=== PATIENT | female | born 1980 | race Caucasian/White ===

== ENCOUNTER 2016-05-15 09:20 | Day surgery (SDC) | payer OTHER, BC ==
[~2016-05-15] VITALS: Ht 167.6 cm; Wt 98.0 kg
[2016-05-15] VITALS (9 sets, daily range): BP systolic 121–140; BP diastolic 69–79; PULSE 16–99; TEMP 97.9
[~2016-05-15 09:20] MED LIST: BENTYL 10MG10 MG/CAP PO; BUPROPION300 MG PO; Benefiber PO; CEFACLOR250 MG PO; CEFTIN500 MG PO; CIPRO 500MG TA500 MG PO; DIAMOX SEQUELS500 M1 PO; FLAGYL500 MG PO; FLOMAX 0.40.4 MG/CAP PO; GLUCOSAMINE S1000 MG PO; LISINOPRIL5 MG PO; MOTRIN 800800 MG/TAB PO; MULTIPLE VITAMI1 CAP PO; NORCO 325 MG-51 TAB PO; PERCOCET 325 MG1 TA2 PO; PRINIVIL10 MG PO; PYRIDIUM 100MG100 MG PO; SENOKOT S 50 MG1 TAB PO; SYNTHROID0.05 MG PO; SYNTHROID0.05 MG/TA PO; VANTIN 200200 MG/TAB; VITAMIN D1000 IU PO; WELLBUTRIN XL300 M1 PO; ZOFRAN 4MG T4 MG/TAB PO; ZOFRAN ODT4 MG PO
[2016-05-15] MEDS ORDERED: OMNICEF 300MG300 MG (11:02)
[2016-05-16 01:36] VITALS: BP 111/62; PULSE 87; TEMP 98.4
[2016-05-16 06:37] VITALS: BP 116/64; PULSE 77; TEMP 97.5
[2016-05-16 09:03] VITALS: BP 129/64; PULSE 90; TEMP 98.2
== END 2016-05-16 11:45 | disposition home or self-care (01) ==
LOC: COL.ER 09:20 → SURG 11:50 → SDCO 11:50
DX: S02.2XXB Fracture of nasal bones, initial encounter for open fracture (principal); S01.21XA Laceration without foreign body of nose, initial encounter; S01.411A Laceration without foreign body of right cheek and temporomandibular area, initial encounter; S62.618A Displaced fracture of proximal phalanx of other finger, initial encounter for closed fracture; W18.09XA Striking against other object with subsequent fall, initial encounter
CPT/HCPCS: OP; J0690; J1100; J1170; J2405; J2550; J2704; J2765; J3010; J7030; J7120

== ENCOUNTER 2019-02-16 14:04 | Emergency (ER) | payer BC ==
[~2019-02-16] VITALS: Ht 167.6 cm; Wt 109.1 kg
[~2019-02-16 14:04] MED LIST changes: +OMNICEF 300MG300 MG
[2019-02-16 15:23] LABS: BASO # 0.1 (0.0-0.2); BASO % 0.6 % (0.0-2.0); EOS # 0.1 (0.0-0.7); GRAN # 6.4 (1.4-6.5); GRAN % 72.1 % (42.2-75.2); HEMATOCRIT 42.3 % (37.0-47.0); HEMOGLOBIN 13.5 g/dl (12.5-16.0); LYMPH # 1.8 (1.2-3.4); LYMPH % 20.5 % (20.0-51.0); MEAN CELL VOLUME 83 fl (80.0-100.0); MEAN CORPUSCULAR HEMOGLOBIN 26 pg (27.0-31.0); MEAN CORPUSCULAR HGB CONC 32 g/dl (33.0-37.0); MEAN PLATELET VOLUME 9.8 fl (7.4-10.4); MONO # 0.5 (0.1-0.6); MONO % 5.6 % (1.7-9.3); PLATELET COUNT 326 K/mm3 (130-400); RED BLOOD COUNT 5.12 M/mm3 (4.10-5.30); REDCELL DISTRIBUTION WIDTH-CV 13.7 % (11.5-14.5)
[2019-02-16 15:33] LABS: ALANINE AMINOTRANSFERASE 22 U/L (9-52); ALBUMIN 4.4 gm/dL (3.5-5.0); ALKALINE PHOSPHATASE 73 U/L (50-136); ANION GAP 8 mmol/L (7-16); AST,SGOT 39 U/L (15-37); BILIRUBIN,TOTAL 0.4 mg/dL (0.0-1.0); BLOOD UREA NITROGEN 15 mg/dL (7-17); CALCIUM 9.1 mg/dL (8.4-10.2); CARBON DIOXIDE 27 mmol/L (22-30); CHLORIDE 105 mmol/L (98-107); GLUCOSE 87 mg/dL (74-106); POTASSIUM 4.2 mmol/L (3.4-5.0); SODIUM 141 mmol/L (137-145); TOTAL PROTEIN 7.5 gm/dL (6.4-8.2)
[2019-02-16 15:44] LABS: C-REACTIVE PROTEIN < 0.5 mg/dL (0.0-0.9)
[2019-02-16 15:45] LABS: ERYTHROCYTE SEDIMENTATION RATE 11 mm/hr (0-20)
[2019-02-16 17:26] VITALS: BP 143/87; PULSE 73; TEMP 97.5
== END 2019-02-16 17:31 | disposition home or self-care (01) ==
LOC: COL.ER 14:04
PROVIDERS: Emergency Medicine
DX: H46.9 Unspecified optic neuritis (principal); I10 Essential (primary) hypertension; Z88.1 Allergy status to other antibiotic agents; Z87.442 Personal history of urinary calculi
CPT/HCPCS: J1200; J1885; J2765

== ENCOUNTER → 2019-02-18 | Outpatient (CLI) | payer BC | LOC: COL.RAD 08:02 | DX: G93.89 Other specified disorders of brain (principal); M89.8X8 Other specified disorders of bone, other site | CPT/HCPCS: A9585 ==

== ENCOUNTER 2019-02-24 08:00 | Outpatient (RCR) | payer BC ==
[2019-02-22 09:10] VITALS: BP 111/63; PULSE 64; TEMP 98.4
[2019-02-23 09:14] VITALS: BP 120/70; PULSE 79; TEMP 98.1
[~2019-02-24] VITALS: Ht 167.6 cm; Wt 111.6 kg
[~2019-02-24 08:00] MED LIST changes: +CRANBERRY250 MG PO; -PRINIVIL10 MG PO; +PRINIVIL20 MG PO; +PROBIOTIC FORMU1 CAP PO; -SYNTHROID0.05 MG/TA PO; +SYNTHROID0.075 MG/T PO
[2019-02-24 08:51] VITALS: BP 125/70; PULSE 70; TEMP 98.2
== END 2019-02-24 09:32 | disposition home or self-care (01) ==
LOC: EUO 08:00
DX: H46.9 Unspecified optic neuritis (principal); H53 Visual disturbances
CPT/HCPCS: J2930; J7050

== ENCOUNTER → 2019-11-18 | Outpatient (CLI) | payer BC | LOC: MC.RAD 14:50 | DX: Z12.31 Encounter for screening mammogram for malignant neoplasm of breast (principal); Z01.419 Encounter for gynecological examination (general) (routine) without abnormal findings; N63.10 Unspecified lump in the right breast, unspecified quadrant; N63.20 Unspecified lump in the left breast, unspecified quadrant ==

== ENCOUNTER → 2019-11-27 | Outpatient (CLI) | payer BC | LOC: MC.RAD 09:12 | DX: Z01.419 Encounter for gynecological examination (general) (routine) without abnormal findings (principal); N64.9 Disorder of breast, unspecified ==

== ENCOUNTER → 2020-03-03 | Outpatient (CLI) | payer BC | LOC: COL.RAD 11:28 | DX: N28.1 Cyst of kidney, acquired (principal); N32.89 Other specified disorders of bladder ==

== ENCOUNTER → 2020-05-31 | Outpatient (CLI) | payer BC | LOC: MC.RAD 12:59 | DX: N63.10 Unspecified lump in the right breast, unspecified quadrant (principal); N63.20 Unspecified lump in the left breast, unspecified quadrant ==

== ENCOUNTER → 2020-12-13 | Outpatient (CLI) | payer BC | LOC: MC.RAD 08:54 | DX: N63.20 Unspecified lump in the left breast, unspecified quadrant (principal) ==

== ENCOUNTER → 2021-12-14 | Outpatient (CLI) | payer BC | LOC: MC.RAD 14:15 | DX: Z12.31 Encounter for screening mammogram for malignant neoplasm of breast (principal) ==

== ENCOUNTER → 2022-05-17 | Outpatient (CLI) | payer BC | LOC: COL.RAD 12:34 | DX: N28.1 Cyst of kidney, acquired (principal); N30.20 Other chronic cystitis without hematuria; Z87.442 Personal history of urinary calculi ==

== ENCOUNTER 2022-08-31 00:27 | Emergency (ER) | payer BC ==
[~2022-08-31] VITALS: Ht 167.6 cm; Wt 115.9 kg
[~2022-08-31 00:27] MED LIST changes: -PROBIOTIC FORMU1 CAP PO; +PROBIOTIC-MAJOR PO
[2022-08-31 00:29] VITALS: TEMP 101.6
[2022-08-31 01:05] LABS: HEMATOCRIT 41.5 % (37.0-47.0); HEMOGLOBIN 13.5 g/dl (12.5-16.0); MEAN CELL VOLUME 84 fl (80.0-100.0); MEAN CORPUSCULAR HEMOGLOBIN 27 pg (27-31); MEAN CORPUSCULAR HGB CONC 33 g/dl (33.0-37.0); MEAN PLATELET VOLUME 9.4 fl (7.4-10.4); PLATELET COUNT 299 K/mm3 (130-400); RED BLOOD COUNT 4.96 M/mm3 (4.10-5.30); REDCELL DISTRIBUTION WIDTH-CV 13.6 % (11.5-14.5)
[2022-08-31 01:11] LABS: ALBUMIN 3.9 gm/dL (3.5-5.0); BILIRUBIN,TOTAL 0.3 mg/dL (0.2-1.2); CALCIUM 9.1 mg/dL (8.4-10.2); CREATININE, serum 1.06 mg/dL (0.57-1.11); POTASSIUM 4.2 mmol/L (3.5-4.5); TOTAL PROTEIN 7.2 gm/dL (6.2-8.1)
[2022-08-31 01:18] LABS: BAND 12 % (0-10); LYMPHOCYTE 2 % (20.0-51.0); NEUTROPHILS 84 % (42.0-75.2); PLATELET ESTIMATE NORMAL (NORMAL)
[2022-08-31 02:37] LABS: COLLECTION METHOD CLEAN CATCH
[2022-08-31 02:48] LABS: SQUAMOUS EPITHELIAL 0-2 /hpf (0-10); URINE BACTERIA Rare /hpf (NONE SEEN)
[2022-08-31 02:49] LABS: PH 7.5 (5.0-8.5); URINE APPEARANCE Clear (CLEAR/HAZY); URINE BLOOD TRACE-LYSED (NEGATIVE); URINE COLOR Yellow (YELLOW); URINE GLUCOSE Negative (NEGATIVE); URINE KETONE Negative (NEGATIVE); URINE NITRATE Negative (NEGATIVE); URINE PROTEIN(semi-quant) Negative (NEGATIVE); URINE UROBILINOGEN 0.2 E.U/dL (0.2-1.0)
[2022-08-31] MEDS ORDERED: LEVAQUIN 750MG750 M1 PO (03:53)
[2022-08-31 04:11] VITALS: BP 154/80; PULSE 72
[2022-08-31] MEDS ORDERED: VUMERITY231 MG PO (13:59)
[2022-08-31] MEDS ORDERED: HIZENTRA SQ (14:00)
[2022-08-31] MEDS ORDERED: FERRO-TIME325 MG PO (14:02)
[2022-08-31] MEDS ORDERED: B2-5050 MG PO (14:03)
[2022-08-31] MEDS ORDERED: B-121000 MCG PO (14:04)
[2022-08-31] MEDS ORDERED: MAG-OX 400400 MG/TAB PO (15:59)
[2022-09-02] MEDS ORDERED: VITAMIN D250 MCG PO (08:45)
[2022-09-04] MEDS ORDERED: AMOXICILLIN 8751 TAB PO (09:53)
== END 2022-08-31 04:11 | disposition home or self-care (01) ==
LOC: COL.ER 00:27
PROVIDERS: Emergency Medicine
DX: N20.0 Calculus of kidney (principal); R00.0 Tachycardia, unspecified; Z88.1 Allergy status to other antibiotic agents
CPT/HCPCS: J1956; J7030; Q9967